=== PATIENT | male | born 2000 | race Caucasian/White ===

== ENCOUNTER 2020-09-06 13:59 | Emergency (ER) | payer OTHER, BC, SELFPAY ==
[~2020-09-06] VITALS: Ht 188 cm; Wt 115.2 kg
[2020-09-06 14:00] VITALS: BP_SYST 136
[2020-09-06] MEDS ORDERED: NACL 0.9% 1,000 ML IV ONE (14:17)
[2020-09-06] MEDS ORDERED: ONDANSETRON HCL 4 MG/2 ML VIAL IVP ONE (14:30)
[2020-09-06 14:46] LABS: BASOPHILS % (AUTO) 0.2 % (0.0-2.0); EOSINOPHILS # (AUTO) 0.1 K/uL (0.0-0.4); EOSINOPHILS % (AUTO) 0.5 % (0.0-4.0); HEMATOCRIT 47.7 % (36-54); HEMOGLOBIN 16.1 g/dL (14.0-18.0); LYMPHOCYTES # (AUTO) 1.2 K/uL (1.0-5.5); LYMPHOCYTES % (AUTO) 7.9 % (20.5-51.5); MEAN CORPUSCULAR HEMOGLOBIN 30 pg (27-31); MEAN CORPUSCULAR HGB CONC 34 % (32-36); MEAN CORPUSCULAR VOLUME 88 fL (79.0-98.0); MONOCYTES % (AUTO) 6.1 % (1.7-9.3); NEUTROPHILS # (AUTO) 13.5 K/uL (1.8-7.7); NEUTROPHILS % (AUTO) 85.3 % (40.0-70.0); PLATELET COUNT (AUTO) 193 K/uL (130-430); RED BLOOD CELL COUNT(AUTO) 5.46 MIL/uL (4.2-6.2); RED CELL DISTRIBUTION WIDTH 13.2 % (9.0-15.0); WHITE BLOOD COUNT (AUTO) 15.8 K/uL (4.8-10.8)
[2020-09-06 15:15] LABS: CALCIUM 8.8 mg/dL (8.4-11.0); CREATININE 0.95 mg/dL (0.55-1.30)
[2020-09-06 15:21] LABS: ALBUMIN 3.8 g/dL (3.4-4.8); TOTAL BILIRUBIN 0.3 mg/dL (0.0-1.0)
[2020-09-06 16:00] VITALS: BP_SYST 136
== END 2020-09-06 16:00 | disposition home or self-care (01) ==
LOC: SED 13:59
DX: R11.2 Nausea with vomiting, unspecified (principal); Z20.828 Contact with and (suspected) exposure to other viral communicable diseases
CPT/HCPCS: 36415; 71045; 80053; 81002; 85025; 87426; 96361; 96374; 99284; J2405; J7030

== ENCOUNTER 2021-02-02 07:22 | Emergency (ER) | payer OTHER ==
[~2021-02-02] VITALS: Ht 182.9 cm; Wt 122.5 kg
[2021-02-02 07:40] VITALS: BP_SYST 130
--- NOTE | 2021-02-02 07:40 | NUR ---
Patient to ER bed 6 to gown for evaluation. Side rails up. Report given to DAMIEN Freeman.
--- NOTE | 2021-02-02 07:55 | NUR ---
Received patient sitting in the edge of the bed. c/o bodily fluid exposure. stated while helping RN to restraint patient. pt spit on his face. immediately wash face. came to ER to be examine. vital sign stable, afebrile.
--- NOTE | 2021-02-02 08:00 | NUR ---
ER at bedside examining patient.
--- NOTE | 2021-02-02 08:30 | NUR ---
blood drawn by phelobotomist.
--- NOTE | 2021-02-02 08:30 | NUR ---
Note reno in ED - 02/02/21 at 0846 by [email or web address] Blood for labwork drawn from []. Patient tolerated [].
--- NOTE | 2021-02-02 08:40 | NUR ---
Patient given written and verbal discharge instructions and verbalizes understanding. ER MD discussed with patient the results and treatment provided. Patient in stable condition. ID arm band removed. Opportunity for questions provided and answered. Medication side effect fact sheet provided.
[2021-02-02 08:45] VITALS: BP_SYST 130
--- NOTE | 2021-02-02 09:33 | NUR ---
Mikal bojorquez in ED - 02/02/21 at 0948 by FREDDY PERNELL Mccormick at bedside examining patient.
--- NOTE | 2021-02-02 09:33 | NUR ---
Note talondallin in EDM - 02/02/21 at 0948 by FREDDY Patient came to the ER due to her inability to get out of bed. The patient explained that she was sitting on her couch yesterday and was helped to bed and when she woke up this morning she was unable. Patient lower extremity has edema and patient is complaining of 2/10 pain in her thighs. Patient is AOx4 and not presenting any signs of respiratory distress. Patient on the gurney placed in the lowest position and side rails up.
[2021-02-03 05:07] LABS: HEPATITIS B CORE AB, TOTAL Negative (Negative); HEPATITIS B SURFACE AG Negative (Negative); HEPATITIS C VIRUS AB <0.1 s/co ratio (0.0-0.9)
== END 2021-02-02 08:40 | disposition home or self-care (01) ==
LOC: SED 07:22
DX: Z77.21 Contact with and (suspected) exposure to potentially hazardous body fluids (principal)
CPT/HCPCS: 36415; 86704; 86706; 86803; 87340; 99283